=== PATIENT | female | born 1995 | race Two or more races ===

== ENCOUNTER 2017-07-09 17:50 | Emergency (ER) | payer OTHER ==
[~2017-07-09] VITALS: Ht 160 cm; Wt 134.3 kg
[2017-07-09] MEDS ORDERED: IBUPROFEN 600 MG TAB PO ONE (20:45)
[2017-07-09 20:47] VITALS: BP 118/77
== END 2017-07-09 21:20 | disposition home or self-care (01) ==
LOC: ER 17:52
DX: R07.89 Other chest pain (principal)
CPT/HCPCS: 71046; 93005

== ENCOUNTER 2020-04-28 14:11 | Emergency (ER) | payer MEDICAID, OTHER ==
[~2020-04-28] VITALS: Ht 160 cm; Wt 97.5 kg
[2020-04-28 14:42] VITALS: BP 142/85
== END 2020-04-28 16:31 | disposition home or self-care (01) ==
LOC: ER 14:11
DX: U07.1 COVID-19 (principal); J03.80 Acute tonsillitis due to other specified organisms
CPT/HCPCS: 36415; 71045; 87426

== ENCOUNTER 2024-03-07 06:28 | Emergency (ER) | payer MEDICAID ==
[~2024-03-07] VITALS: Ht 160 cm; Wt 153.4 kg
[2024-03-07 07:33] VITALS: BP 119/55; PULSE 72; RESP 16; TEMP 97.8; O2SAT 97
[2024-03-07 08:02] LABS: Urine Bacteria FEW /hpf (None Seen); Urine Blood 1+ /uL (Negative); Urine Clarity Clear (Clear); Urine Color Light-Yellow (Yellow); Urine Protein, UAD Negative (Negative); Urine Specific Gravity 1.024 (1.001-1.035); Urine Urobilinogen Normal (Negative); Urine WBC 1 /hpf (0 - 5); Urine pH 6.5 (5.0-9.0)
[2024-03-07 08:32] LABS: Basophils # (auto) 0 10 ^3/uL (0-0.2); Basophils % (auto) 0.3 % (0.0-2.0); Eosinophils # (auto) 0.1 10 ^3/uL (0-0.8); Eosinophils % (auto) 0.4 % (0.0-7.0); Hemoglobin 12.3 g/dL (12.2-16.2); Lymphocytes # (auto) 2.2 10 ^3/uL (0.4-5.4); Lymphocytes % (auto) 15.8 % (10.0-50.0); Mean Corpuscular Hemoglobin 31.1 pg (28.0-32.0); Mean Corpuscular Volume 91.5 fL (80.0-100.0); Monocytes # (auto) 0.8 10 ^3/uL (0-1.3); Monocytes % (auto) 5.8 % (0.0-12.0); Neutrophils # (auto) 11.1 10 ^3/uL (1.6-8.6); Neutrophils % (auto) 77.7 % (37.0-80.0); Platelet Count (auto) 329 10^3/uL (140-450); Red Blood Cells 3.94 10^6/uL (4.0-5.20); Red Cell Distribution Width 13.7 % (11.8-14.3); White Blood Cell 14.2 10^3/uL (4.4-10.8)
[2024-03-07] MEDS: ONDANSETRON ODT 4 MG TAB PO ONE (08:34)
[2024-03-07] MEDS: KETOROLAC TROMETH 60MG/2ML VIAL IM ONE (08:34)
[2024-03-07 08:51] LABS: Alanine Aminotransferase 22 U/L (7-40); Alkaline Phosphatase 65 U/L (46-116); Anion Gap 8 (5-15); Aspartate Aminotransferase 14 U/L (13-40); Blood Urea Nitrogen 10 mg/dL (9-23); Carbon Dioxide 23 mmol/L (20-31); Chloride 107 mmol/L (98-107); Glucose 116 mg/dL (74-106); Sodium 138 mmol/L (136-145)
[2024-03-07 08:52] LABS: Bilirubin, Total 0.5 mg/dL (0.2-1.0); Total Protein 7.2 g/dL (5.7-8.2)
[2024-03-07 09:07] LABS: Lipase 28 U/L (12-53)
[2024-03-07] MEDS ORDERED: ZOFR4T PO (09:14)
[2024-03-07] MEDS ORDERED: IBUP-1456 PO (09:14)
== END 2024-03-07 09:18 | disposition home or self-care (01) ==
LOC: ER 06:28
DX: K80.20 Calculus of gallbladder without cholecystitis without obstruction (principal); Z79.1 Long term (current) use of non-steroidal anti-inflammatories (NSAID); Z32.02 Encounter for pregnancy test, result negative
CPT/HCPCS: 36415; 76705; 80053; 81001; 81025; 83690; 85025; 96372; 99285; J1885; Q0162

== ENCOUNTER 2024-04-04 22:31 | Emergency (ER) | payer MEDICAID ==
[~2024-04-04] VITALS: Ht 160 cm; Wt 152.1 kg
[~2024-04-04 22:31] MED LIST: IBUP-1456 PO; ZOFR4T PO
[2024-04-04] MEDS: HYDROcodone-ACET 5/325MG TAB PO ONE (23:35)
[2024-04-04 23:37] VITALS: BP 149/87; TEMP 98.6
[2024-04-04 23:38] VITALS: PULSE 83; RESP 16; O2SAT 97
--- NOTE | 2024-04-04 23:51 | DVH ---
XY L ANKLE 3 VIEW, INDICATION: 28 old Female Twist/trauma TECHNICAL DATA:Frontal , oblique and lateral views were obtained of the left ankle. COMPARISON: None FINDINGS: No fracture is identified. Joint spaces are maintained. Alignment is anatomic. Soft tissues are wit hin normal limit. IMPRESSION: No acute fracture or dislocation of the left ankle.
[2024-04-05] MEDS ORDERED: IBUP-1455 PO (00:42)
[2024-04-05] MEDS ORDERED: ACET500T58 PO (00:42)
--- NOTE | 2024-04-05 00:42 | ED.PDOC ---
Musculoskeletal HPI Comments This patient is a pleasant but severely morbidly obese 28-year-old female who arrives to the ED today for evaluation of left ankle pain concerns for the past day. Patient states that yesterday she twisted her ankle while doing house chores. Patient is able to ambulate, but with the pain. Vital signs were stable on arrival. Chief Complaint: Lower Extremity Time Seen by MD: 22:41 Primary Care Provider: UNK Reviewed Notes: Nurses Notes Allergies: Coded Allergies: NO KNOWN ALLERGIES (Unverified , 07/31/14) Home Meds Active Scripts Ondansetron Odt 4MG Tab (ZOFRAN PO) 4 Mg Tb, 4 MG PO BID, #14 TAB ODT TAB-DISSOLVE IN MOUTH, THEN SWALLOW Prov:ANGELA FERNANDES 03/07/24 Ibuprofen (Ibuprofen) 800 Mg Tab, 1 TAB PO TID, #30 TAB Prov:ANGELA FERNANDES 03/07/24 Information Source: Patient Mode of Arrival: Ambulatory Location: Left Extremity Location: Ankle Timing: Days Prehospital treatment: None Severity: Moderate Able to Move Extremity: Yes Bear Weight: Limited Pain: Moderate Hand Dominance: Right Mechanism: Twisting Circumstances: Accident Onset of Symptoms: After Trauma Symptoms: Swelling, Pain DVT Risk Factors: NONE Past Medical History PAST MEDICAL HISTORY: Denies Surgical History: Denies all surgeries PAVING INSPECTOR History: No Pertinent PAVING INSPECTOR History Family History Family History: Reviewed,noncontributory to illness Social History Smoker: Non-Smoker Alcohol: Denies ETOH Use Drugs: Denies Drug Use Lives In: Home Constitutional: denies: chills, diaphoresis, fatigue, fever, malaise, sweats, weakness, others EENTM: denies: blurred vision, double vision, ear bleeding, ear discharge, ear drainage, ear pain, ear ringing, eye pain, eye redness, hearing loss, mouth pain, mouth swelling, nasal discharge, nose bleeding, nose congestion, nose pain , photophobia, tearing, throat pain, throat swelling, voice changes, others Respiratory: denies: cough, hemoptysis, orthopnea, SOB at rest, shortness of breath, SOB with excertion, stridor, wheezing, others Cardiovascular: denies: chest pain, dizzy spells, diaphoresis, Dyspnea on exertion, edema, irregular heart beat, left arm pain, lightheadedness, palpitations, PND, syncope, others Gastrointestinal: denies: abdomen distended, abdominal pain, blood streaked bowels, constipated, diarrhea, dysphagia, difficulty swallowing, hematemesis, melena, nausea, poor appetite, poor fluid intake, rectal bleeding, rectal pain, vomiting, others Genitourinary: denies: abnormal vagina bleeding, burning, dyspareunia, dysuria, flank pain, frequency, hematuria, incontinence, pain, , vagina discharge, urgency, others Neurological: denies: dizziness, fainting, headache, left sided numbness, left sided weakness, numbness, paresthesia, pre-existing deficit, right sided numbness, right sided weakness, seizure, speech problems, tingling, tremors, weakness, others Musculoskeletal: reports: others (Left Ankle pain); denies: back pain, gout, joint pain, joint swelling, muscle pain, muscle stiffness, neck pain Integumetry: denies: bruises, change in color, change in hair/nails, dryness, laceration, lesions, lumps, rash, wounds, others Allergic/Immunocompromised: denies: Difficulty Healing, Frequent Infections, Hives, Itching, others Hematologic/Lymphatic: denies: anemia, blood clots, easy bleeding, easy bruising, swollen glands, others Endocrine: denies: excessive hunger, excessive sweating, excessive thirst, excessive urination, flushing, intolerance to cold, intolerance to heat, unexplained weight gain, unexplained weight loss, others Psychiatric: denies: anxiety, bipolar disorder, depression, hopeless, panic disorder, schizophrenia, sleepless, suicidal, others Physical Exam General Appearance: Moderate Distress (Due to left ankle pain concerns.), Obese HEENT: Normal ENT Inspection, Pharynx Normal, TMs Normal Neck: Full Range of Motion, Non-Tender, Normal, Normal Inspection Respiratory: Chest Non-Tender, Lungs Clear, No Accessory Muscle Use, No Respiratory Distress, Normal Breath Sounds Cardiovascular: No Edema, No JVD, No Murmur, No Gallop, Normal Peripheral Pulses, Regular Rate/Rhythm Breast Exam: Deferred Gastrointestinal: No Organomegaly, Non Tender, No Pulsatile Mass, Normal Bowel Sounds, Soft Genitalia: Deferred Pelvic: Deferred Rectal: Deferred Extremities: Other (Left ankle is diffusely tender to palpation throughout the lateral aspect with moderate edema and very mild ecchymosis at the inferior malleolus region. Moderate reduced range of motion. Patient is able to bear weight.) Neurologic: Alert, No Motor Deficits, Normal Affect, Normal Mood, No Sensory Deficits Cerebellar Function: Normal Reflexes: Normal Skin: Dry, Normal Color, Warm Lymphatic: No Adenopathy Was a procedure done? Was a procedure done?: No Differential Diagnosis EXT Differential Diagnosis: Fracture, Sprain, Strain X-Ray, Labs, Meds, VS Vital Signs Date Time Temp Pulse Resp B/P (MAP) Pulse Ox O2 Delivery O2 Flow Rate FiO2 04/04/24 23:38 83 16 97 Room Air 04/04/24 23:37 98.6 83 16 149/87 (107) 97 98.6 04/04/24 22:43 98.6 76 18 160/95 (116) 99 Current Medications Medications (Trade) Dose Ordered Sig/Wilber Route Start Time Stop Time Status Last Admin Acetaminophen/ Hydrocodone Bitart ([place] 5/325MG Tab) 1 tab ONCE ONCE PO 04/04/24 23:15 04/04/24 23:16 DC 04/04/24 23:35 X-Ray, Labs, Meds, VS Comment All studies performed in the ED today were reviewed by me personally. X-rays studies were unremarkable for any acute fractures. Some medial edema was appreciated. Patient sustained an ankle sprain. Vamshi wrap was provided at discharge. Time of 1ST Reevaluation: 00:41 Reevaluation 1ST: Improved Consultation: PCP Patient Education/Counseling: Diagnosis, Treatment Family Education/Counseling: Diagnosis, Treatment Departure 1 Departure Time of Disposition: 00:41 Impression: Primary Impression: Left ankle sprain Disposition: HOME / SELF CARE / HOMELESS Condition: Stable Additional Instructions: Advised patient utilize pain medication as needed for symptomatic relief as well as utilizing the Vamshi wrap as long as and aid in the healing process. Ice therapy as well. e-Prescriptions Acetaminophen (Acetaminophen) 500 Mg Tab 500 MG PO Q4HP PRN, #30 TAB Prov: MARCO A MATTHEW PAC 04/05/24 Ibuprofen Micronized (Ibuprofen) 800 Mg Tab 800 MG PO Q8HP PRN, #20 TAB Prov: MARCO A MATTHEW PAC 04/05/24 Discharged With: Self, Friend Critical Care Note Critical Care Time?: No Stability Stability form required: No Heart Score Heart Score: Heart Score Response (Comments) Value History N/A 0 EKG N/A 0 Age N/A 0 Risk Factors N/A 0 Troponin N/A 0 Total 0 MARCO A MATTHEW PAC Apr 05, 2024 00:42
== END 2024-04-05 00:56 | disposition home or self-care (01) ==
LOC: ER 22:31
DX: S93.402A Sprain of unspecified ligament of left ankle, initial encounter (principal); Z79.1 Long term (current) use of non-steroidal anti-inflammatories (NSAID); X50.1XXA Overexertion from prolonged static or awkward postures, initial encounter; Y93.89 Activity, other specified; Y92.89 Other specified places as the place of occurrence of the external cause; Y99.8 Other external cause status
CPT/HCPCS: 73610